=== PATIENT | female | born 1945 | race Caucasian/White ===

== ENCOUNTER → 2019-07-05 13:58 | Outpatient (BNVA) | payer MEDICARE, OTHER, SELFPAY | PROVIDERS: Family Provider Nurse Practitioner; PCP Nurse Practitioner; Visit Provider Nurse Practitioner | DX: E03.9 Hypothyroidism, unspecified (principal); I10 Essential (primary) hypertension; E55.9 Vitamin D deficiency, unspecified | CPT/HCPCS: 80053; 80061; 82306; 84443 ==

== ENCOUNTER → 2019-12-31 13:01 | Outpatient (BNVA) | payer MEDICARE, OTHER, SELFPAY | PROVIDERS: Family Provider Nurse Practitioner; PCP Nurse Practitioner Family; Visit Provider Nurse Practitioner Family | DX: N30.20 Other chronic cystitis without hematuria (principal); R33.9 Retention of urine, unspecified; N95.2 Postmenopausal atrophic vaginitis | CPT/HCPCS: 81001 ==

== ENCOUNTER 2021-01-07 07:04 | Outpatient (CLI) | payer MEDICARE, OTHER, SELFPAY ==
[2021-01-07 07:59] VITALS: BP 105/61; PULSE 70; RESP 18; TEMP 37.3; O2SAT 94; BMI 34.7
[2021-01-07 08:38] VITALS: BP 114/61; PULSE 50; RESP 18; TEMP 36.6; O2SAT 94
[2021-01-07 09:43] VITALS: BP 108/62; PULSE 56; RESP 18; TEMP 36.8
== END 2021-01-07 07:05 | disposition home or self-care (01) ==
PROVIDERS: PCP Nurse Practitioner Family; Visit Provider Family Medicine
DX: U07.1 COVID-19 (principal)
CPT/HCPCS: 96365

== ENCOUNTER → 2021-01-28 07:53 | Outpatient (BNVA) | payer MEDICARE, OTHER, SELFPAY | PROVIDERS: PCP Nurse Practitioner Family; Visit Provider Urology | DX: N30.20 Other chronic cystitis without hematuria (principal); R33.9 Retention of urine, unspecified | CPT/HCPCS: 81003 ==

== ENCOUNTER 2021-02-16 10:04 | Outpatient (CLI) | payer MEDICARE, OTHER, SELFPAY ==
--- NOTE | 2021-02-16 10:23 | XR_ITS ---
WS: [id number] Right hip, AP and frog-leg views, AP pelvis, 02/16/2021 Clinical Data: R HIP PAIN Comparison: Pelvis and left hip, 04/27/2018. Findings: No fractures or dislocations are seen. The right hip joint is intact. There is a right acetabular lip . The left hip arthroplasty shows no change. There is medial migration of the arthroplastic cup uncha nged. There are sutures in the left lower quadrant of the abdomen. There is a bony fusion of the righ t L5-S1 vertebral bodies. XR/XR hip RT 2-3V wo/w pel* [id number] Impression: 1. Minimal osteoarthritis of the right hip. 2. No change in left hip arthroplasty. Tonnis classification: grade 1: sclerosis of femoral head and acetabulum or sli ght joint space narrowing or slight lipping at joint margins
== END 2021-02-16 10:05 | disposition home or self-care (01) ==
PROVIDERS: PCP Nurse Practitioner Family; Visit Provider Nurse Practitioner Family
DX: M25.551 Pain in right hip (principal); Z96.642 Presence of left artificial hip joint
CPT/HCPCS: 73502

== ENCOUNTER 2021-03-04 09:38 | Outpatient (CLI) | payer MEDICARE, OTHER, SELFPAY | END 2021-03-04 09:39 | disposition home or self-care (01) | LOC: WOUND 09:39 | PROVIDERS: PCP Nurse Practitioner Family; Visit Provider Thoracic Surgery (Cardiothoracic Vascular Surgery) | DX: I96 Gangrene, not elsewhere classified (principal); L89.312 Pressure ulcer of right buttock, stage 2; I10 Essential (primary) hypertension | CPT/HCPCS: 97597; G0463 ==

== ENCOUNTER 2021-03-11 08:51 | Outpatient (CLI) | payer MEDICARE, OTHER, SELFPAY | END 2021-03-11 08:52 | disposition home or self-care (01) | LOC: WOUND 08:52 | PROVIDERS: PCP Nurse Practitioner Family; Visit Provider Thoracic Surgery (Cardiothoracic Vascular Surgery) | DX: L89.312 Pressure ulcer of right buttock, stage 2 (principal) | CPT/HCPCS: 97597 ==

== ENCOUNTER 2021-03-18 09:14 | Outpatient (CLI) | payer MEDICARE, OTHER, SELFPAY | END 2021-03-18 09:15 | disposition home or self-care (01) | LOC: WOUND 09:16 | PROVIDERS: PCP Nurse Practitioner Family; Visit Provider Nurse Practitioner Family | DX: I96 Gangrene, not elsewhere classified (principal); L89.312 Pressure ulcer of right buttock, stage 2; I10 Essential (primary) hypertension | CPT/HCPCS: 11042 ==

== ENCOUNTER 2021-04-01 09:20 | Outpatient (CLI) | payer MEDICARE, OTHER, SELFPAY | END 2021-04-01 09:21 | disposition home or self-care (01) | LOC: WOUND 09:27 | PROVIDERS: PCP Nurse Practitioner Family; Visit Provider Nurse Practitioner Family | DX: I96 Gangrene, not elsewhere classified (principal); L89.312 Pressure ulcer of right buttock, stage 2 | CPT/HCPCS: 11042 ==

== ENCOUNTER 2021-04-08 09:09 | Outpatient (CLI) | payer MEDICARE, OTHER, SELFPAY | END 2021-04-08 09:10 | disposition home or self-care (01) | LOC: WOUND 09:10 | PROVIDERS: PCP Nurse Practitioner Family; Visit Provider Thoracic Surgery (Cardiothoracic Vascular Surgery) | DX: I96 Gangrene, not elsewhere classified (principal); L89.312 Pressure ulcer of right buttock, stage 2 | CPT/HCPCS: 97597 ==

== ENCOUNTER 2021-04-15 10:17 | Outpatient (CLI) | payer MEDICARE, OTHER, SELFPAY | END 2021-04-15 10:18 | disposition home or self-care (01) | LOC: WOUND 10:21 | PROVIDERS: PCP Nurse Practitioner Family; Visit Provider Thoracic Surgery (Cardiothoracic Vascular Surgery) | DX: I96 Gangrene, not elsewhere classified (principal); L89.312 Pressure ulcer of right buttock, stage 2 | CPT/HCPCS: 97597 ==

== ENCOUNTER 2021-04-22 08:49 | Outpatient (CLI) | payer MEDICARE, OTHER, SELFPAY | END 2021-04-22 08:50 | disposition home or self-care (01) | LOC: WOUND 08:50 | PROVIDERS: PCP Nurse Practitioner Family; Visit Provider Nurse Practitioner Family | DX: Z09 Encounter for follow-up examination after completed treatment for conditions other than malignant neoplasm (principal) | CPT/HCPCS: 99212 ==

== ENCOUNTER → 2022-03-02 14:53 | Outpatient (BNVA) | payer MEDICARE, OTHER, SELFPAY | PROVIDERS: PCP Nurse Practitioner Family; Visit Provider Nurse Practitioner Family | DX: N30.20 Other chronic cystitis without hematuria (principal); R33.9 Retention of urine, unspecified | CPT/HCPCS: 51798; 81003; 99213 ==

== ENCOUNTER 2023-05-30 11:52 | Outpatient (CLI) | payer MEDICARE, OTHER, SELFPAY ==
--- NOTE | 2023-05-30 11:58 | CT_ITS ---
WS: [id number] CT LUMBAR SPINE TECHNIQUE: Noncontrast CT of the lumbar spine with coronal and sagittal reformatted images. CLINICAL INFORMATION: LUMBAR SPINAL STENOSIS W/NEUROGENIC CLAUDICATION COMPARISON: None. DLP: 1366.[address] scans at [facility] use at least one of these dose optimization techniques: automated e xposure control; mA and/or kV adjustment per patient size (includes targeted exams where dose is matc hed to clinical indication); or iterative reconstruction. FINDINGS: Slight fibrosis RIGHT lower lobe medially. Small esophageal hiatal hernia. Postoperative changes at t he GE junction. Adrenal glands are normal. Degenerative arthritis sacroiliac joints. Postoperative ch anges LEFT TIFFANIE. Osteopenia. Grade 1 anterolisthesis L4 on L5. Disc space narrowing worse at L1-L2 L2- L3 and L3-L4 with vacuum disc phenomenon. Anterior hypertrophic changes. Ankylosis lower thoracic spi ne. L1-L2: Vacuum disc phenomenon with disc desiccation. Moderate RIGHT proximal bony foraminal narrowing . Spinal canal and LEFT foramen are patent. L2-L3: Disc desiccation with vacuum disc phenomenon. Slight narrowing of the RIGHT subarticular reces s. Mild facet arthropathy. Mild LEFT bony foraminal narrowing. L3-L4: Disc desiccation with vacuum disc phenomenon. Slight effacement of the ventral thecal sac. Mod erate to severe LEFT bony foraminal narrowing. Spinal canal and RIGHT foramen are patent. Moderate fa cet arthropathy. L4-L5: Grade 1 anterolisthesis. Mild disc bulge with narrowing of the subarticular recess bilaterally . Moderate to advanced facet arthropathy. Foramen are patent. L5-S1: Disc osteophyte complex with endplate ridging. Moderate to advanced facet arthropathy. Foramen are patent. Visualized pelvic bony structures: Normal. Paravertebral soft tissues: Normal. IMPRESSION: 1. Lumbar curve with osteopenia. 2. Disc desiccation with vacuum disc phenomenon L1-L3. Grade 1 anterolisthesis L4 on L5. 3. No high-grade central canal stenosis. 4. Moderate RIGHT L1-2 bony foraminal narrowing. Mild LEFT L2-3, moderate to severe LEFT L3-4 bony f oraminal narrowing. 5. Moderate to advanced arthropathy L4-L5 and L5-S1.
== END 2023-05-30 11:53 | disposition home or self-care (01) ==
LOC: RAD 11:54
PROVIDERS: PCP Nurse Practitioner Family; Visit Provider Orthopaedic Surgery
DX: M48.062 Spinal stenosis, lumbar region with neurogenic claudication (principal)
CPT/HCPCS: 72131